=== PATIENT | male | born 1970 | race Caucasian/White ===

== ENCOUNTER 2022-01-25 15:56 | Outpatient (CLI) | payer BC, SELFPAY | END 2022-01-25 15:57 | disposition home or self-care (01) | LOC: NFLDREF 15:59 | PROVIDERS: PCP Internal Medicine; Visit Provider Internal Medicine | DX: E11.9 Type 2 diabetes mellitus without complications (principal); I10 Essential (primary) hypertension; Z13.6 Encounter for screening for cardiovascular disorders | CPT/HCPCS: 80053; 80061 ==

== ENCOUNTER 2022-05-10 08:47 | Outpatient (CLI) | payer BC, SELFPAY ==
[2022-05-10 11:49] LABS: Albumin* 4.6 g/dL (3.3-5.0); Chloride* 103 mmol/L (96-114); Sodium* 137 mmol/L (135-149)
[2022-05-10 11:50] LABS: Potassium* 5.2 mmol/L (3.6-5.1)
[2022-05-10 11:52] LABS: Cholesterol* 206 mg/dL (90-199)
[2022-05-10 11:53] LABS: Alanine Aminotransferase* 64 U/L (4-50); Alkaline Phosphatase* 90 U/L (40-150); Aspartate Amino Transferase* 40 U/L (12-35); Bilirubin Total* 0.6 mg/dL (0.1-1.5); Blood Urea Nitrogen* 20 mg/dL (7-30); Carbon Dioxide* 25 mmol/L (20-32); Creatinine* 0.8 mg/dL (0.5-1.5); Estimated Glomerular Filt Rate 108 ml/min; Glucose* 280 mg/dL (60-115); Total Protein* 7.1 g/dL (6.0-8.3); Triglycerides* 356 mg/dL (40-149)
[2022-05-10 11:54] LABS: HDL Cholesterol* 32 mg/dL (>=40); LDL Cholesterol Calculated 103 mg/dL (<100)
== END 2022-05-10 08:48 | disposition home or self-care (01) ==
PROVIDERS: PCP Internal Medicine; Visit Provider Internal Medicine
DX: E11.9 Type 2 diabetes mellitus without complications (principal)
CPT/HCPCS: 80053; 80061

== ENCOUNTER 2022-11-07 08:38 | Outpatient (CLI) | payer BC, SELFPAY | END 2022-11-07 08:39 | disposition home or self-care (01) | LOC: NFLDREF 11-08 08:47 | PROVIDERS: PCP Internal Medicine; Referring Provider Internal Medicine; Visit Provider Internal Medicine | DX: E11.9 Type 2 diabetes mellitus without complications (principal); I10 Essential (primary) hypertension; Z13.6 Encounter for screening for cardiovascular disorders | CPT/HCPCS: 80053; 80061; 82043; 82570 ==

== ENCOUNTER 2022-12-14 10:16 | Outpatient (CLI) | payer BC, SELFPAY ==
--- NOTE | 2022-12-14 07:03 | W.ANESCHARGE ---
Anesthesia Charges Start Date/Time Anesthesia Start Date: 12/14/22 Anesthesia Start Time: 10:55 Stop Date/Time Anesthesia Stop Date: 12/14/22 Anesthesia Stop Time: 11:35
--- NOTE | 2022-12-14 11:47 | W.ANESCHARGE ---
Anesthesia Charges Start Date/Time Anesthesia Start Date: 12/14/22 Anesthesia Start Time: 10:55 Stop Date/Time Anesthesia Stop Date: 12/14/22 Anesthesia Stop Time: 11:35
== END 2022-12-14 10:17 | disposition home or self-care (01) ==
LOC: OP CLINIC 10:17
PROVIDERS: PCP Internal Medicine; Visit Provider Surgery
DX: Z12.11 Encounter for screening for malignant neoplasm of colon (principal); K63.5 Polyp of colon; K57.30 Diverticulosis of large intestine without perforation or abscess without bleeding
CPT/HCPCS: 00811; 45385; 88305; J2704

== ENCOUNTER 2023-04-26 08:12 | Outpatient (CLI) | payer BC, SELFPAY ==
--- OUTSIDE RECORDS SUMMARY | 2023-05-02 12:22 | XMS_ITS | Clinical Summary ---
Author Name Unknown Organization [facility] Address [place], [place] [address] Care Team Providers Care Design Inserter Name Role Phone Alex Victoria MD Primary Care Provider +1- [phone] Allergies Active Allergy Reactions Criticality Noted Date Comments Erythromycin 06/29/2010 Medications Medication Sig Dispensed Refills Start Date End Date Status betamethasone-calcipotr iene (TACLONEX) 0.005-0.064 % ointmentIndications:Pso riasis Apply daily for up to 4 weeks and then take one week off. 90 g 6 11/20/2011 Active Active Problems Problem Noted Date Diagnosed Date Psoriasis 11/20/2011 Overweight(278.02) 11/20/2011 Immunizations Name Administration Dates Next Due Tdap 11/20/2011 Family History Medical History Relation Name Comments Hypertension Father Cancer Mother skin Relation Name Status Comments Father Alive Mother Alive Social History Tobacco Use Types Packs/Day Years Used Date Smoking Tobacco: Former Cigarettes Smokeless Tobacco: Never Tobacco Cessation:Counseling Given: Yes Alcohol Use Standard Drinks/Week Comments Yes 0 (1 standard drink = 0.6 oz pur e alcohol) weekly 6 to 8 each week Sex and Gender Information Value Date Recorded Sex Assigned at Not on file Gender Identity Not on file Sexual Orientation Not on file Obstetrics History Last Filed Vital Signs Vital Sign Reading Time Taken Comments Blood Pressure 137/83 11/16/2016 9:24 AM CDT Pulse 73 11/16/2016 9:21 AM CDT Temperature 36.8 ??C (98.3 ??F) 11/16/2016 9:21 AM CD T Respiratory Rate - - Oxygen Saturation 97% 11/16/2016 9:21 AM CDT Inhaled Oxygen Concentration - - Weight 105.8 kg (233 lb 3.2 oz) 11/16/2016 9:21 AM CDT Height 169.5 cm (5' 6.73) 11/16/2016 9:21 AM CD T Body Mass Index 36.82 11/16/2016 9:21 AM CDT Plan of Treatment Health Maintenance Due Date Last Done Comments COVID-19 vaccine series (#1) 03/03/1972 HIV for age 15-65 08/31/1986 Hepatitis C screening for ag e 18-79 08/31/1989 Colonoscopy through age 75 08/31/2016 Lipids for age 45-75 11/19/2016 11/20/2011 Depression screening for age 12+ 06/05/2017 06/05/19 17 BMI (ht and wt on same day) for age 18+ 11/16/2017 11/16/2016 Zoster (shingles) series for age 50+ (1 of 2) 08/31/2021 Tetanus booster 11/19/2021 11/20/2011 Influenza for age 50-64 12/22/2022 Tdap Completed 11/20/2011 Pneumococcal series for age 6-64 Aged Out No longer eligible based on patient's age to complete this topic Care Teams Design Inserter Relationship Specialty Start Date End Date Alex Victoria [place] [address] PCP - General Family Practice 10/31/11
== END 2023-04-26 08:13 | disposition home or self-care (01) ==
LOC: NFLDREF 05-02 12:20
PROVIDERS: PCP Internal Medicine; Referring Provider Internal Medicine; Visit Provider Internal Medicine
DX: E11.9 Type 2 diabetes mellitus without complications (principal); E78.5 Hyperlipidemia, unspecified
CPT/HCPCS: 80053; 80061; 82043; 82570

== ENCOUNTER 2023-12-25 08:34 | Outpatient (CLI) | payer BC, SELFPAY ==
--- OUTSIDE RECORDS SUMMARY | 2023-12-26 16:23 | XMS_ITS | Clinical Summary ---
Author Organization [facility] Address [place], [place] [address] Care Team Providers Care Fuel Handler Name Role Phone Alex Victoria MD Primary Care Provider +1- [phone] Allergies Active Allergy Reactions Criticality Noted Date Comments Erythromycin 06/29/2010 Medications Medication Sig Dispensed Refills Start Date End Date Status betamethasone-calcipo triene (TACLONEX) 0.005-0.064 % ointmentIndications:P soriasis Apply daily for up to 4 weeks and then take one week off. 90 g 6 11/20/2011 Active methylphenidate 27 mg extended-release tablet Take 1 Tablet (27 mg) by mouth once daily every morning for ADHD. 30 Tablet 05/21/2023 Active Active Problems Problem Noted Date Diagnosed [...] Health Maintenance Due Date Last Done Comments HIV for age 15-65 08/31/1986 Hepatitis C screening for ag e 18-79 08/31/1989 Colonoscopy through age 75 08/31/2016 Lipids for age 45-75 11/19/2016 11/20/2011 Depression screening for age 12+ 06/05/2017 06/05/19 17 BMI (ht and wt on same day) for age 18+ 11/16/2017 11/16/2016 Zoster (shingles) series for age 50+ (1 of 2) 08/31/2021 Tetanus booster 11/19/2021 11/20/2011 COVID-19 vaccine series (2022- season) 2023 Influenza for age 50-64 12/23/2023 Tdap Completed 11/20/2011 Pneumococcal series for age 6-64 Aged Out No longer eligible based on patient's age to complete this topic Procedures Procedure Name Priority Date/Time Associated Diagnosis Comments LIPID PANEL W REFLEX MEASURED LDL Routine 11/20/2011 8:59 AM CDT Screening for lipoid disorders from Last 3 Months or Most Recently Relevant to Health Maintenance Results * (ABNORMAL) LIPID PANEL W REFLEX MEASURED LDL (11/20/2011 8:59 AM CDT) CHOLESTEROL,TOTAL 205(H) 100 - 199 mg/dL 11/20/2011 9:37 AM T [facility] TRIGLYCERIDES 106 <150 mg/dL 11/20/2011 9:37 AM T [facility] HDL CHOLESTEROL 39(L) >40 mg/dL 2 9:37 AM T [facility] CHOL/HDL RATIO 5.26(H) <4.50 11/20/2011 9:37 AM T [facility] LDL CHOLESTEROL 145 >=0 mg/dL 2 9:37 AM T [facility] PATIENT STATUS FASTING 11/20/2011 9:37 AM CDT [facility] Blood specimen (specimen) BLOOD SPECIMEN / Unknown 11/20/2011 8:59 AM CDT 11/20/2011 8:59 AM CDT Alex Victoria MD CHEMISTRY [facility] [address] [place] [address] from Last 3 Months or Most Recently Relevant to Health Maintenance Care Teams Fuel Handler Relationship Specialty Start Date End Date Alex Victoria MD [address] [place] [address] PCP - General Family Practice 10/31/11
== END 2023-12-25 08:35 | disposition home or self-care (01) ==
LOC: NFLDREF 12-26 16:22
PROVIDERS: PCP Internal Medicine; Referring Provider Internal Medicine; Visit Provider Internal Medicine
DX: E11.65 Type 2 diabetes mellitus with hyperglycemia (principal); I10 Essential (primary) hypertension; K76.0 Fatty (change of) liver, not elsewhere classified; Z79.84 Long term (current) use of oral hypoglycemic drugs; Z79.85 Long-term (current) use of injectable non-insulin antidiabetic drugs; Z12.5 Encounter for screening for malignant neoplasm of prostate
CPT/HCPCS: 80053; 80061; 82043; 82570; G0103

== ENCOUNTER 2024-12-24 08:30 | Outpatient (CLI) | payer BC, SELFPAY | END 2024-12-24 08:31 | disposition home or self-care (01) | LOC: NFLDREF 12-25 08:43 | PROVIDERS: PCP Internal Medicine; Referring Provider Internal Medicine; Visit Provider Internal Medicine | DX: E11.65 Type 2 diabetes mellitus with hyperglycemia (principal); I10 Essential (primary) hypertension; E78.5 Hyperlipidemia, unspecified | CPT/HCPCS: 80053; 80061; 82043; 82570 ==